=== PATIENT | female | born 1935 | race Two or more races ===

== ENCOUNTER → 2016-07-18 | Outpatient (CLI) | payer MEDICARE, MEDICAID ==
[~2016-07-18] MED LIST: ACLI1AER2 IN; ALBUAER3 INH; COMIH INH; FLUT100M7 IN; MON10T PO; NEOMOIN EX; PRE5T PO
== END | disposition home or self-care (01) ==
LOC: Rad HDHVI 11:01
PROVIDERS: ATTEND Internal Medicine Cardiovascular Disease
DX: K57.30 Diverticulosis of large intestine without perforation or abscess without bleeding (principal); J43.8 Other emphysema; N26.1 Atrophy of kidney (terminal); I70.0 Atherosclerosis of aorta; Z96.642 Presence of left artificial hip joint; M47.899 Other spondylosis, site unspecified
CPT/HCPCS: 74176

== ENCOUNTER → 2016-09-09 | Outpatient (CLI) | payer MEDICARE, MEDICAID | END | disposition home or self-care (01) | LOC: Rad HDHVI 11:48 | PROVIDERS: ATTEND Internal Medicine Cardiovascular Disease | DX: I50.9 Heart failure, unspecified (principal); I70.0 Atherosclerosis of aorta; R91.8 Other nonspecific abnormal finding of lung field | CPT/HCPCS: 71020 ==

== ENCOUNTER → 2017-02-19 | Outpatient (CLI) | payer MEDICARE, MEDICAID ==
[2017-02-19 16:34] LABS: Albumin 4.1 g/dL (3.4-5.0); BUN/Creatinine Ratio 28.4; Bilirubin, Total 0.8 mg/dL (0.2-1.0); Calcium 9.6 mg/dL (8.5-10.1); Potassium 4.2 mmol/L (3.5-5.1); Total Protein 7.1 g/dL (6.4-8.2)
[2017-02-19 16:49] LABS: Hepatitis B Surface Antibody Negative
== END | disposition home or self-care (01) ==
LOC: LAB 11:35
PROVIDERS: ATTEND Internal Medicine Cardiovascular Disease
DX: K75.9 Inflammatory liver disease, unspecified (principal); I10 Essential (primary) hypertension
CPT/HCPCS: 36415; 80053; 86704; 86706; 86708; 86803; 87340

== ENCOUNTER → 2017-07-07 | Outpatient (CLI) | payer MEDICARE, MEDICAID | END | disposition home or self-care (01) | LOC: Rad HDHVI 12:01 | PROVIDERS: ATTEND Internal Medicine Cardiovascular Disease | DX: R05 Cough (principal); R06.2 Wheezing | CPT/HCPCS: 71046 ==

== ENCOUNTER 2017-07-26 09:53 | Inpatient (IN) | payer MEDICARE, MEDICAID ==
[~2017-07-26] VITALS: Ht 152.4 cm; Wt 49.4 kg
[2017-07-26 10:32] LABS: Basophils # (auto) 0 uL; Basophils % (auto) 0.4 % (0.0-2.0); Eosinophils # (auto) 0 uL; Eosinophils % (auto) 0.8 % (0.0-7.0); Hematocrit 45.1 % (36.0-46.0); Hemoglobin 14.7 g/dL (12.2-16.2); Lymphocytes # (auto) 1.1 uL; Lymphocytes % (auto) 26.4 % (10.0-50.0); Mean Corpuscular Hemoglobin 31.5 pg (28.0-32.0); Mean Corpuscular Hgb Conc. 32.5 g/dL (32.0-36.0); Mean Corpuscular Volume 96.8 fL (80.0-100.0); Monocytes # (auto) 0.5 uL; Monocytes % (auto) 12.4 % (0.0-12.0); Neutrophils # (auto) 2.5 uL; Nucleated Red Blood Cells % 0.2 %; Platelet Count (auto) 111 10^3/uL (140-450); Red Blood Cells 4.66 10^6/uL (4.0-5.20); Red Cell Distribution Width 13.5 % (11.8-14.3); White Blood Cell 4.1 10^3/uL (4.4-10.8)
[2017-07-26 10:48] LABS: Urine Bacteria NONE SEEN /hpf (None Seen); Urine Blood Negative /uL (Negative); Urine Mucus FEW (None Seen); Urine WBC 4 /hpf (0 - 5)
[2017-07-26 10:52] LABS: Albumin 3.7 g/dL (3.4-5.0); BUN/Creatinine Ratio 42.6; Calcium 9.3 mg/dL (8.5-10.1); Magnesium 2.4 mg/dL (1.6-2.6); Total Protein 7.2 g/dL (6.4-8.2)
[2017-07-26] MEDS ORDERED: MORPHINE SULF INJ 2 MG/ML SYRINGE 1ML IV PRN (12:00)
[2017-07-26] MEDS ORDERED: NITROGLYCERIN 0.4 MG SL TAB SL PRN (12:00)
[2017-07-26] MEDS ORDERED: cefTRIAXone 1GM/10ml IVPUSH 10 ML IV ONE (12:30)
[2017-07-26] MEDS ORDERED: MONTELUKAST SODIUM 10 MG TAB PO ONE (13:00)
[2017-07-26] MEDS: ALBUTEROL SULF 2.5 MG/0.5ML(0.5%) NEB SOLN NEB SCH ×2 (13:23→18:00)
[2017-07-26] MEDS: methylPREDNISolone SOD SUCC 40 MG/ML VL IV SCH ×2 (14:17→21:59)
[2017-07-26] MEDS: SODIUM CHLORIDE 0.9% 1,000 ML IV SCH (16:00)
[2017-07-26 16:14] VITALS: BP 144/70
[2017-07-26 17:35] VITALS: BP 121/71
[2017-07-26 20:00] VITALS: BP 140/55
[2017-07-26 22:00] VITALS: BP 140/55
[2017-07-27] VITALS (7 sets, daily range): BP systolic 115–142; BP diastolic 44–68
[2017-07-27] MEDS: SODIUM CHLORIDE 0.9% 1,000 ML IV SCH ×2 (05:35→18:06)
[2017-07-27] MEDS: methylPREDNISolone SOD SUCC 40 MG/ML VL IV SCH ×3 (05:39→22:12)
[2017-07-27] MEDS: ALBUTEROL SULF 2.5 MG/0.5ML(0.5%) NEB SOLN NEB SCH ×4 (06:25→19:20)
[2017-07-27] MEDS: cefTRIAXone 1GM/10ml IVPUSH 10 ML IV SCH (09:42)
[2017-07-27] MEDS: MONTELUKAST SODIUM 10 MG TAB PO SCH (09:42)
[2017-07-28] MEDS: ALBUTEROL SULF 2.5 MG/0.5ML(0.5%) NEB SOLN NEB SCH ×4 (00:26→20:26)
[2017-07-28] MEDS: methylPREDNISolone SOD SUCC 40 MG/ML VL IV SCH ×3 (05:37→21:27)
[2017-07-28 05:42] VITALS: BP 122/77
[2017-07-28] MEDS: SODIUM CHLORIDE 0.9% 1,000 ML IV SCH ×2 (07:13→20:39)
[2017-07-28] MEDS: ARMODAFINIL 150 MG TAB PO SCH ×2 (07:37→07:40)
[2017-07-28 08:00] VITALS: BP 141/82
[2017-07-28 09:11] VITALS: BP 141/82
[2017-07-28] MEDS: MONTELUKAST SODIUM 10 MG TAB PO SCH (09:12)
[2017-07-28] MEDS: cefTRIAXone 1GM/10ml IVPUSH 10 ML IV SCH (09:12)
[2017-07-28 17:56] VITALS: BP 137/63
[2017-07-28 22:00] VITALS: BP 142/72
[2017-07-29] MEDS: ALBUTEROL SULF 2.5 MG/0.5ML(0.5%) NEB SOLN NEB SCH ×4 (00:15→18:26)
[2017-07-29 06:00] VITALS: BP 153/90
[2017-07-29] MEDS: methylPREDNISolone SOD SUCC 40 MG/ML VL IV SCH ×3 (06:02→21:32)
[2017-07-29] MEDS: ARMODAFINIL 150 MG TAB PO SCH (07:31)
[2017-07-29 09:00] VITALS: BP 147/58
[2017-07-29] MEDS: MONTELUKAST SODIUM 10 MG TAB PO SCH (09:53)
[2017-07-29] MEDS: cefTRIAXone 1GM/10ml IVPUSH 10 ML IV SCH (09:53)
[2017-07-29] MEDS: SODIUM CHLORIDE 0.9% 1,000 ML IV SCH (09:54)
[2017-07-29 13:00] VITALS: BP 128/54
[2017-07-29 17:33] VITALS: BP 137/64
[2017-07-29 22:00] VITALS: BP 145/65
[2017-07-30] MEDS: ALBUTEROL SULF 2.5 MG/0.5ML(0.5%) NEB SOLN NEB SCH ×4 (00:08→19:21)
[2017-07-30] MEDS ORDERED: SODIUM CHLORIDE 0.9 % NEB SOLN 3ML NEB ONE ×2 (05:22→08:35)
[2017-07-30 05:25] VITALS: BP 148/82
[2017-07-30] MEDS: methylPREDNISolone SOD SUCC 40 MG/ML VL IV SCH ×3 (05:44→21:57)
[2017-07-30] MEDS: ARMODAFINIL 150 MG TAB PO SCH (08:00)
[2017-07-30] MEDS: BOOST 8 ounces PO SCH ×2 (08:00→18:11)
[2017-07-30 09:00] VITALS: BP 149/62
[2017-07-30] MEDS: MONTELUKAST SODIUM 10 MG TAB PO SCH (11:32)
[2017-07-30] MEDS: cefTRIAXone 1GM/10ml IVPUSH 10 ML IV SCH (11:33)
[2017-07-30 13:00] VITALS: BP 132/66
[2017-07-30 17:00] VITALS: BP 135/69
[2017-07-30 20:00] VITALS: BP 130/70
[2017-07-30] MEDS ORDERED: MORPHINE SULFATE 4 MG/ML SYR/VIAL IV PRN (20:00)
[2017-07-30 22:00] VITALS: BP 130/70
[2017-07-31] MEDS: ALBUTEROL SULF 2.5 MG/0.5ML(0.5%) NEB SOLN NEB SCH ×4 (01:18→19:51)
[2017-07-31 05:00] VITALS: BP 148/87
[2017-07-31] MEDS: methylPREDNISolone SOD SUCC 40 MG/ML VL IV SCH ×3 (05:38→23:30)
[2017-07-31 09:00] VITALS: BP 168/73
[2017-07-31 09:47] VITALS: BP 148/87
[2017-07-31] MEDS: BOOST 8 ounces PO SCH ×2 (10:35→18:00)
[2017-07-31] MEDS: MONTELUKAST SODIUM 10 MG TAB PO SCH (10:35)
[2017-07-31] MEDS: cefTRIAXone 1GM/10ml IVPUSH 10 ML IV SCH (10:35)
[2017-07-31 11:09] LABS: Basophils # (auto) 0 uL; Eosinophils # (auto) 0 uL; Hematocrit 39.8 % (36.0-46.0); Lymphocytes # (auto) 0.3 uL; Lymphocytes % (auto) 3.1 % (10.0-50.0); Mean Corpuscular Hemoglobin 31.2 pg (28.0-32.0); Mean Corpuscular Hgb Conc. 32.6 g/dL (32.0-36.0); Mean Corpuscular Volume 95.7 fL (80.0-100.0); Monocytes # (auto) 0.3 uL; Monocytes % (auto) 4.2 % (0.0-12.0); Neutrophils # (auto) 7.6 uL; Neutrophils % (auto) 92.7 % (37.0-80.0); Platelet Count (auto) 160 10^3/uL (140-450); Red Blood Cells 4.16 10^6/uL (4.0-5.20); Red Cell Distribution Width 13.8 % (11.8-14.3); White Blood Cell 8.2 10^3/uL (4.4-10.8)
[2017-07-31 11:19] LABS: BUN/Creatinine Ratio 28.1; Bilirubin, Total 0.6 mg/dL (0.2-1.0); Calcium 8.9 mg/dL (8.5-10.1); Potassium 3.6 mmol/L (3.5-5.1); Total Protein 5.9 g/dL (6.4-8.2)
[2017-07-31 13:00] VITALS: BP 141/65
[2017-07-31 17:00] VITALS: BP 135/69
[2017-07-31 22:00] VITALS: BP 118/63
[2017-08-01 05:00] VITALS: BP 141/78
[2017-08-01] MEDS: methylPREDNISolone SOD SUCC 40 MG/ML VL IV SCH (06:00)
[2017-08-01] MEDS: ALBUTEROL SULF 2.5 MG/0.5ML(0.5%) NEB SOLN NEB SCH ×2 (06:03)
[2017-08-01 08:00] VITALS: BP 115/52
[2017-08-01] MEDS: MONTELUKAST SODIUM 10 MG TAB PO SCH (10:36)
[2017-08-01] MEDS: BOOST 8 ounces PO SCH (10:36)
[2017-08-01 10:59] VITALS: BP 115/52
== END 2017-08-01 11:45 | disposition home or self-care (01) | DRG 189 ==
LOC: ER 09:53 → TELE 09:54 → TELE-EAST 17:35 → EAST 07-31 20:13
PROVIDERS: ADMIT Internal Medicine Cardiovascular Disease; ATTEND Internal Medicine Cardiovascular Disease
PROC: 5A09357 Assistance with Respiratory Ventilation, Less than 24 Consecutive Hours, Continuous Positive Airway Pressure (ICD-10-PCS; principal; 2017-07-26)
PROC: 5A09357 Assistance with Respiratory Ventilation, Less than 24 Consecutive Hours, Continuous Positive Airway Pressure (ICD-10-PCS; 2017-07-27)
PROC: 5A09357 Assistance with Respiratory Ventilation, Less than 24 Consecutive Hours, Continuous Positive Airway Pressure (ICD-10-PCS; 2017-07-29)
PROC: 5A09357 Assistance with Respiratory Ventilation, Less than 24 Consecutive Hours, Continuous Positive Airway Pressure (ICD-10-PCS; 2017-07-30)
PROC: 5A09357 Assistance with Respiratory Ventilation, Less than 24 Consecutive Hours, Continuous Positive Airway Pressure (ICD-10-PCS; 2017-07-31)
DX: J96.00 Acute respiratory failure, unspecified whether with hypoxia or hypercapnia (principal); E87.2 Acidosis; R64 Cachexia; J44.1 Chronic obstructive pulmonary disease with (acute) exacerbation; N39.0 Urinary tract infection, site not specified; J44.9 Chronic obstructive pulmonary disease, unspecified; I10 Essential (primary) hypertension; R74.8 Abnormal levels of other serum enzymes; G47.33 Obstructive sleep apnea (adult) (pediatric); Z53.29 Procedure and treatment not carried out because of patient's decision for other reasons; Z68.21 Body mass index [BMI] 21.0-21.9, adult; Z72.0 Tobacco use; Z91.19 Patient's noncompliance with other medical treatment and regimen; Z99.81 Dependence on supplemental oxygen
CPT/HCPCS: 36415; 36600; 70450; 71046; 80053; 81001; 82805; 83735; 84484; 85025; 87040; 87086; 87400; 93005; 94640; 94660; 96374; A4565

== ENCOUNTER → 2017-08-18 | Outpatient (CLI) | payer MEDICARE, MEDICAID | END | disposition home or self-care (01) | LOC: Rad HDHVI 14:23 | PROVIDERS: ATTEND Internal Medicine Cardiovascular Disease | DX: J44.9 Chronic obstructive pulmonary disease, unspecified (principal); J84.9 Interstitial pulmonary disease, unspecified; Z91.81 History of falling | CPT/HCPCS: 71046 ==

== ENCOUNTER → 2018-02-25 | Outpatient (CLI) | payer MEDICARE, MEDICAID | END | disposition home or self-care (01) | LOC: Rad HDHVI 14:57 | PROVIDERS: ATTEND Internal Medicine Cardiovascular Disease | DX: I08.1 Rheumatic disorders of both mitral and tricuspid valves (principal); J44.9 Chronic obstructive pulmonary disease, unspecified; N18.6 End stage renal disease | CPT/HCPCS: 93306 ==

== ENCOUNTER 2018-11-14 11:41 | Inpatient (IN) | payer MEDICARE, MEDICAID ==
[~2018-11-14] VITALS: Ht 152.4 cm; Wt 45.5 kg
[2018-11-14 13:15] VITALS: BP 134/60
[2018-11-14] MEDS ORDERED: ONDANSETRON HCL 4 MG/2 ML VIAL IV PRN (13:30)
[2018-11-14] MEDS ORDERED: NITROGLYCERIN 0.4 MG SL TAB SL PRN (13:30)
[2018-11-14] MEDS ORDERED: ACETAMINOPHEN 500 MG TAB PO PRN (13:30)
[2018-11-14] MEDS ORDERED: MORPHINE SULF INJ 2 MG/ML SYRINGE 1ML IV PRN ×2 (13:30)
[2018-11-14] MEDS ORDERED: methylPREDNISolone SOD SUCC 125 MG/2 ML VL IV ONE (13:30)
[2018-11-14] MEDS ORDERED: HYDROcodone-ACET 5/325MG TAB PO PRN (13:30)
[2018-11-14 13:41] LABS: Basophils # (auto) 0 uL; Basophils % (auto) 0.8 % (0.0-2.0); Eosinophils # (auto) 0.1 uL; Eosinophils % (auto) 1.9 % (0.0-7.0); Hematocrit 41.1 % (36.0-46.0); Hemoglobin 13.4 g/dL (12.2-16.2); Lymphocytes % (auto) 21.4 % (10.0-50.0); Mean Corpuscular Hemoglobin 31.5 pg (28.0-32.0); Mean Corpuscular Hgb Conc. 32.6 g/dL (32.0-36.0); Mean Corpuscular Volume 96.8 fL (80.0-100.0); Monocytes # (auto) 0.6 uL; Monocytes % (auto) 12.3 % (0.0-12.0); Neutrophils % (auto) 63.6 % (37.0-80.0); Nucleated Red Blood Cells % 0.3 %; Platelet Count (auto) 81 10^3/uL (140-450); Red Blood Cells 4.25 10^6/uL (4.0-5.20); Red Cell Distribution Width 14.2 % (11.8-14.3); White Blood Cell 4.8 10^3/uL (4.4-10.8)
[2018-11-14 13:49] LABS: Albumin 3.9 g/dL (3.4-5.0); Calcium 10.3 mg/dL (8.5-10.1); Potassium 3.9 mmol/L (3.5-5.1)
[2018-11-14 13:56] LABS: Bilirubin, Total 1.1 mg/dL (0.2-1.0); Total Protein 6.5 g/dL (6.4-8.2)
[2018-11-14] MEDS: cefTRIAXone 1GM/50ML D5W 50 ML IV SCH (14:29)
[2018-11-14] MEDS: IPRATROPIUM BROM 0.5 MG/2.5ML INH SOL NEB SCH ×3 (14:35→22:35)
[2018-11-14] MEDS: ALBUTEROL SULF 2.5 MG/0.5ML(0.5%) NEB SOLN NEB SCH ×3 (14:35→22:35)
[2018-11-14] MEDS: AZITHROMYCIN 500MG/ 250ML 250 ML IV SCH (15:00)
[2018-11-14] MEDS: BUDESONIDE (INHALATION) 0.5 MG/2 ML NEB NEB SCH (19:30)
--- NOTE | 2018-11-14 20:47 | NUR ---
Telemetry admit from [facility] admitted to Telemetry unit. Patient oriented to Macrina Hernandez RN primary RN, and [facility]DM[facility] unit, room, bed, and unit policies regarding patient care and visiting hours. Patient now on continuous telemetry monitoring, tele box # 33 and telemetry reading on arrival to unit is SR80. Patient placed on bedside bipap, weighed by bedscale and encouraged to call if they need something. All questions and concerns addressed, patient and family verbalized understanding. Signed: 11/15/18 at 0129 by GRADY MANLEY SN <Co-Signature Required> Co-Signed: 11/15/18 at 0129 by MACRINA HERNANDEZ RN RN
--- NOTE | 2018-11-14 20:50 | NUR ---
Medication allergy per family. Pt's daughter reports that pt is sensitive to aspirin and that anxiety medication makes the pt more confused. Family is refusing the use of blood thinners. Signed: 11/15/18 at 020 by GRADY MANLEY <Co-Signature Required> Co-Signed: 11/15/18 at 020 by RA HERNANDEZ RN RN
[2018-11-14 21:35] VITALS: BP 118/62
[2018-11-14] MEDS: methylPREDNISolone SOD SUCC 125 MG/2 ML VL IV SCH (22:25)
[2018-11-14 23:55] VITALS: BP 118/62
[2018-11-15 05:00] VITALS: BP 125/55
[2018-11-15] MEDS: ALBUTEROL SULF 2.5 MG/0.5ML(0.5%) NEB SOLN NEB SCH ×5 (06:10→22:31)
--- NOTE | 2018-11-15 06:10 | NUR ---
Respiratory note: WALKED IN TO PT'S ROOM FOR MN TX AND BIPAP CHECK. PT WAS OFF BIPAP AND WAS TOLERATING A 3L/M NASAL CANNULA. WILL CONTINUE TO MONITOR PT.
[2018-11-15] MEDS: IPRATROPIUM BROM 0.5 MG/2.5ML INH SOL NEB SCH ×5 (06:11→22:31)
[2018-11-15] MEDS: BUDESONIDE (INHALATION) 0.5 MG/2 ML NEB NEB SCH ×2 (06:11→18:39)
[2018-11-15 06:14] LABS: Basophils # (auto) 0 uL; Basophils % (auto) 0.2 % (0.0-2.0); Eosinophils # (auto) 0 uL; Hemoglobin 13.9 g/dL (12.2-16.2); Lymphocytes # (auto) 0.5 uL; Lymphocytes % (auto) 11.6 % (10.0-50.0); Mean Corpuscular Hemoglobin 31.8 pg (28.0-32.0); Mean Corpuscular Volume 96.4 fL (80.0-100.0); Monocytes # (auto) 0 uL; Monocytes % (auto) 1.1 % (0.0-12.0); Neutrophils # (auto) 3.7 uL; Neutrophils % (auto) 87.1 % (37.0-80.0); Nucleated Red Blood Cells % 0.1 %; Platelet Count (auto) 87 10^3/uL (140-450); Red Blood Cells 4.36 10^6/uL (4.0-5.20); White Blood Cell 4.2 10^3/uL (4.4-10.8)
[2018-11-15 06:43] LABS: BUN/Creatinine Ratio 34.3; Calcium 9.5 mg/dL (8.5-10.1); Potassium 4.7 mmol/L (3.5-5.1)
--- NOTE | 2018-11-15 07:45 | NUR ---
Morning note patient resting in bed with even and unlabored respirations, no distress noted. Instructed patient on POC, fall precautions and to call for assistance. Patient verbalized understanding. Instruction and education provided through translation. Fall precautions in place with bed in lowest locked position with x2 side rails up and call light within reach. Sitter at bedside for safety. Will continue to monitor q1hr & PRN.
[2018-11-15 09:05] VITALS: BP 94/45
[2018-11-15] MEDS: PANTOPRAZOLE 40 MG TAB PO SCH (09:31)
[2018-11-15] MEDS: MONTELUKAST SODIUM 10 MG TAB PO SCH (09:31)
[2018-11-15] MEDS: cefTRIAXone 1GM/50ML D5W 50 ML IV SCH (09:31)
[2018-11-15] MEDS: methylPREDNISolone SOD SUCC 125 MG/2 ML VL IV SCH ×2 (09:31→21:20)
--- NOTE | 2018-11-15 09:45 | NUR ---
Family at bedside
[2018-11-15] MEDS: AZITHROMYCIN 500MG/ 250ML 250 ML IV SCH (10:16)
--- NOTE | 2018-11-15 10:58 | NUR ---
Urine specimen collected and sent to lab per MD's order
[2018-11-15 11:18] LABS: Urine Bacteria NONE SEEN /hpf (None Seen); Urine Blood Negative /uL (Negative); Urine Mucus FEW (None Seen); Urine Specific Gravity 1.022 (1.001-1.035); Urine WBC 1 /hpf (0 - 5)
--- NOTE | 2018-11-15 12:27 | NUR ---
Nutrition consult/assessment Notes Please see attached link for complete assessment Est. Needs BW 43 [id number] kcal (25-30 kcal/kgBW), 43-51 gms pro (1.0-1.2 gms/kgBW). Will continue to monitor pertinent labs and reassess nutrient need prn Addendum: 11/15/18 at [address] Amended: Links added.
[2018-11-15 13:26] VITALS: BP 124/49
--- NOTE | 2018-11-15 15:11 | NUR ---
Patient resting in bed with even and unlabored respiration, no distress noted. Call light within reach. Sitter at bedside for safety.
[2018-11-15 15:29] VITALS: BP 124/49
[2018-11-15 17:00] VITALS: BP 136/70
--- NOTE | 2018-11-15 18:41 | NUR ---
Closing note patient resting in bed with even and unlabored respirations, no distress noted. Fall precautions in place with bed in lowest locked position, x2 side rails up and call light within reach. Patient's daughter is at bedside.
--- NOTE | 2018-11-15 18:58 | NUR ---
Care endorsed to RODOLFO Fonseca.
[2018-11-15 21:08] VITALS: BP 107/50
--- NOTE | 2018-11-15 23:20 | NUR ---
OPENING NOTE Received report from day shift RN. Patient is A&O X's self, confused, and patient's family reports patient is having some hallucinations. Patient shows no s/s of distress. Educated family on POC. They verbalized understanding. Currently, patient is refusing a full physical assessment to be done. She does not want to have buttocks/back/feet to be examined. Bed is in lowest/locked position with side rails up X's 2 and call light is within reach of patient. Sitter is currently at bedside. Will continue to monitor for changes and round hourly/PRN.
--- NOTE | 2018-11-16 02:23 | NUR ---
IV REMOVAL Patient removed 20G IV to right forearm. Catheter was fully intact. Applied gauze to site. No trauma noted. Patient shows no s/s of distress but is confused.
--- NOTE | 2018-11-16 02:24 | NUR ---
PATIENT REFUSING IV Patient is refusing a new IV to be inserted. Multiple RN's translated to provide information on the IV. Patient still refusing. Will continue to reorient patient and try again.
--- NOTE | 2018-11-16 03:07 | NUR ---
PATIENT CONFUSED/SPOKE WITH FAMILY Patient became really confused and tried to get out of bed. She did not want another IV inserted at this time and started yelling. Called family member Hilda to speak with patient. Hilda requested to leave IV insertion for later in the AM when family is present and patient is more relaxed. Educated patient's family about importance of IV. They verbalized understanding. Patient is in bed with no s/s of distress.
--- NOTE | 2018-11-16 03:42 | NUR ---
FAMILY MEMBER AT BEDSIDE Family member at bedside to help calm down patient. burr grinder aware.
[2018-11-16 05:30] VITALS: BP 128/68
--- NOTE | 2018-11-16 05:56 | NUR ---
NURSING NOTE: IV Patient's family member is at bedside. He requested to insert IV at a later time to avoid waking up the patient at this time who was confused all night and just recently fell asleep. Educated him on insertion IV insertion. He still would like to have it done at a later time.
--- NOTE | 2018-11-16 06:33 | NUR ---
NURSING NOTE Patient's family member tried to wake up patient for IV insertion and to have VS taken. Patient was confused and started to yell. She then got out of bed, with RN and NA and patient's family member assisting. Patient then walked to the door where she was then reorientated at this time. We safely transferred patient back into bed at this time. Patient and patient's family member refuse for another IV to be inserted at this time. Will continue to monitor for changes
[2018-11-16] MEDS: IPRATROPIUM BROM 0.5 MG/2.5ML INH SOL NEB SCH ×5 (06:36→22:19)
[2018-11-16] MEDS: ALBUTEROL SULF 2.5 MG/0.5ML(0.5%) NEB SOLN NEB SCH ×5 (06:36→22:19)
--- NOTE | 2018-11-16 06:37 | NUR ---
Respiratory note: PT REFUSED MED NEB TX. NO SOB NOTED ON 1L NC. POX 93%, HR 101. NO SOB NOTED. PT IS BREATHING COMFORTABLY LAYING IN BED.
--- NOTE | 2018-11-16 06:45 | NUR ---
SPOKE WITH PATIENT'S FAMILY-SON IN LAW He is refusing all treatments for patient at this time. He request that she is not woken up for anything if she is sleeping.
--- NOTE | 2018-11-16 08:00 | NUR ---
Opening Shift Note Assumed care of patient, awake, alert and oriented X1, to self only. No S/S of distress/SOB or pain. Tele# 33, sinus rhythm @ 86 bpm. Patient is Italian speaking only, translation provided by MOLLY Meyer. Patient has no IV access, refuses, will attempt at a later time. Instructed on POC and to call for assist PRN, verbalized understanding, but requires frequent reorienting. Bed locked, in lowest position, call light within reach, sitter remains at bedside for patient safety, will continue to monitor for changes Q1hr and PRN.
--- NOTE | 2018-11-16 09:15 | NUR ---
FAMILY Hilda, daughter, at bedside, updated on plan of care, verbalized understanding. Verbalized she is upset because patient did not have Bi-Pap on throughout the night and she feels this is contributing to her moms increased confusion last night. Informed per night nurse note, family had requested to hold all treatment until a.m., verbalized understanding. Verbalized she has offered to stay with her mom at bedside all night but had been told that was not an option. I informed her I would ask our charge nurse if we have an available private room, if so, she may stay at bedside but someone must be at bedside 24 hours, verbalized she would prefer that as her mom gets agitated easily and she can calm her down.
[2018-11-16 09:27] VITALS: BP 113/58
--- NOTE | 2018-11-16 09:45 | NUR ---
Informed Mily RN, Charge Nurse, verbalized patient to move to room 207. Informed daughter Hilda, verbalized appreciation and understanding.
[2018-11-16] MEDS: BUDESONIDE (INHALATION) 0.5 MG/2 ML NEB NEB SCH ×2 (09:57→22:19)
--- NOTE | 2018-11-16 10:15 | NUR ---
ROOM CHANGE Patient transferred to room 207 with all personal belongings, daughter Hilda at bedside.
[2018-11-16] MEDS: MONTELUKAST SODIUM 10 MG TAB PO SCH (11:37)
[2018-11-16] MEDS: PANTOPRAZOLE 40 MG TAB PO SCH (11:37)
[2018-11-16 12:00] VITALS: BP 117/59
--- NOTE | 2018-11-16 12:00 | NUR ---
IV insertion IV access obtained, via clean sterile technique by inserting 22 gauge catheter at left wrist by RODOLFO Minor, Charge Nurse. IV secured properly. No trauma to site. Patient tolerated procedure well.
[2018-11-16] MEDS: cefTRIAXone 1GM/50ML D5W 50 ML IV SCH (12:23)
[2018-11-16] MEDS: methylPREDNISolone SOD SUCC 125 MG/2 ML VL IV SCH ×2 (12:23→22:19)
[2018-11-16] MEDS: AZITHROMYCIN 500MG/ 250ML 250 ML IV SCH (13:45)
[2018-11-16 17:00] VITALS: BP 108/59
[2018-11-16] MEDS: Ensure Enlive Chocolate 8oz Bottle PO SCH (17:31)
--- NOTE | 2018-11-16 18:01 | NUR ---
MENTATION Per son Kaushik at bedside, patient appears to be confused and saying mean things which per son is not like her. They are requesting an ABG and verification as to when the Bi-Pap is to be applied. Spoke to Dr Barth by phone, notified of the above, stat ABG on 2 LPM ordered. Updated son at bedside, verbalized understanding.
--- NOTE | 2018-11-16 18:51 | NUR ---
ABG Notified Dr Barth of ABG results, no new orders at this time.
--- NOTE | 2018-11-16 19:10 | NUR ---
Care endorsed to RODOLFO Almanzar, night nurse.
--- NOTE | 2018-11-16 19:30 | NUR ---
Opening Shift Note Assumed care of patient, awake and alert x3. No S/S of distress/SOB or pain. Family at bedside. Instructed on POC and to call for assist PRN. Bed in lowest locked position, call light within reach, side rails up x2, fall precautions in place. Will continue to monitor for changes Q1hr and PRN.
[2018-11-16 21:00] VITALS: BP 118/54
--- NOTE | 2018-11-17 01:24 | NUR ---
Rounds Pt took off Bipap mask. Stating it was too tight and uncomfortable and would like to go back on the nasal cannula. Pt placed on 2L NC O2 satting at 96%. Continue care.
[2018-11-17 05:00] VITALS: BP 135/79
[2018-11-17] MEDS: IPRATROPIUM BROM 0.5 MG/2.5ML INH SOL NEB SCH ×3 (06:40→15:08)
[2018-11-17] MEDS: ALBUTEROL SULF 2.5 MG/0.5ML(0.5%) NEB SOLN NEB SCH ×3 (06:40→15:08)
[2018-11-17 08:00] VITALS: BP 123/63
[2018-11-17] MEDS: Ensure Enlive Chocolate 8oz Bottle PO SCH (08:00)
--- NOTE | 2018-11-17 08:00 | NUR ---
Opening Shift Note Assumed care of patient, awake, alert and oriented X1, to self. Patient is Anguillan speaking, translation provided by MOLLY Meyer. No S/S of distress/SOB or pain. Tele# 33, sinus rhythm @ 76 bpm. IV to left wrist, 22 gauge, patent and saline locked. Instructed on POC and to call for assist PRN, will continue to monitor for changes Q1hr and PRN.
[2018-11-17] MEDS: BUDESONIDE (INHALATION) 0.5 MG/2 ML NEB NEB SCH (10:15)
[2018-11-17] MEDS: PANTOPRAZOLE 40 MG TAB PO SCH (11:01)
[2018-11-17] MEDS: AZITHROMYCIN 500MG/ 250ML 250 ML IV SCH (11:01)
[2018-11-17] MEDS: cefTRIAXone 1GM/50ML D5W 50 ML IV SCH (11:01)
[2018-11-17] MEDS: MONTELUKAST SODIUM 10 MG TAB PO SCH (11:01)
[2018-11-17] MEDS: methylPREDNISolone SOD SUCC 125 MG/2 ML VL IV SCH (11:02)
[2018-11-17 12:43] VITALS: BP 109/52
--- NOTE | 2018-11-17 13:40 | NUR ---
IV removal IV 22G to left hand DC'd after infiltration was noted to site. IV DC'd with clean sterile technique, catheter fully intact. Pressure dressing applied to site. Patient tolerated well. Signed: 11/17/18 at 1524 by SN MUSHTAQ <Co-Signature Required> Co-Signed: 11/17/18 at 1524 by Sydney Bell RN
--- NOTE | 2018-11-17 16:46 | NUR ---
assessment Per consult advanced directive information. I have provided family with advanced directive and information. Addendum: 11/17/18 at 1647 by Nancy Church Amended: Links added.
[2018-11-17 16:49] VITALS: BP 125/92
[2018-11-17 17:12] VITALS: BP 125/92
--- NOTE | 2018-11-17 18:23 | NUR ---
Discharge instructions given as ordered. Encourage to follow up with PMD as instructed. All questions and concerns addressed. Patient verbalized understanding. Medication reconciliation form completed and copy given to patient. IV removed with catheter intact, pressure dressing applied. Telemetry unit returned to ICU. Patient taken to vehicle via wheelchair with all personal belongings, on O2 @ 2 LPM via nasal cannula, accompanied by staff and family member. No distress noted at time of departure.
== END 2018-11-17 18:15 | disposition home or self-care (01) | DRG 189 ==
LOC: ER 11:45 → TELE 13:34 → TELE-CENTR 20:47
PROVIDERS: ADMIT Nurse Practitioner Acute Care; ATTEND Internal Medicine Cardiovascular Disease
PROC: 5A09357 Assistance with Respiratory Ventilation, Less than 24 Consecutive Hours, Continuous Positive Airway Pressure (ICD-10-PCS; principal; 2018-11-14)
PROC: 5A09357 Assistance with Respiratory Ventilation, Less than 24 Consecutive Hours, Continuous Positive Airway Pressure (ICD-10-PCS; 2018-11-15)
PROC: 5A09357 Assistance with Respiratory Ventilation, Less than 24 Consecutive Hours, Continuous Positive Airway Pressure (ICD-10-PCS; 2018-11-16)
DX: J96.22 Acute and chronic respiratory failure with hypercapnia (principal); J44.1 Chronic obstructive pulmonary disease with (acute) exacerbation; E44.0 Moderate protein-calorie malnutrition; R17 Unspecified jaundice; E87.2 Acidosis; E66.2 Morbid (severe) obesity with alveolar hypoventilation; Z68.1 Body mass index [BMI] 19.9 or less, adult; M81.0 Age-related osteoporosis without current pathological fracture; Z53.29 Procedure and treatment not carried out because of patient's decision for other reasons; I10 Essential (primary) hypertension; Z99.81 Dependence on supplemental oxygen; Z87.891 Personal history of nicotine dependence; Z87.01 Personal history of pneumonia (recurrent); Z80.3 Family history of malignant neoplasm of breast; Z80.0 Family history of malignant neoplasm of digestive organs; Z91.19 Patient's noncompliance with other medical treatment and regimen; Z88.6 Allergy status to analgesic agent; R41.82 Altered mental status, unspecified
CPT/HCPCS: 36415; 36600; 71045; 80048; 80053; 81001; 82805; 82962; 83735; 84484; 85025; 87086; 93005; 94640; 94660; 96374; 96375; 99291; G0378; J0696

== ENCOUNTER → 2018-12-17 | Outpatient (CLI) | payer MEDICARE, MEDICAID ==
[~2018-12-17] MED LIST changes: -ACLI1AER2 IN; -NEOMOIN EX; -PRE5T PO
[2018-12-17 12:20] LABS: BUN/Creatinine Ratio 32.9; Calcium 8.8 mg/dL (8.5-10.1)
[2018-12-17 15:05] LABS: Uric Acid 3.6 mg/dL (2.6-6.0)
== END | disposition home or self-care (01) ==
LOC: Rad HDHVI 10:32
PROVIDERS: ATTEND Internal Medicine
DX: M85.872 Other specified disorders of bone density and structure, left ankle and foot (principal); M10.9 Gout, unspecified; I10 Essential (primary) hypertension
CPT/HCPCS: 36415; 73610; 73630; 80048; 84550